=== PATIENT | female | born 1960 | race Caucasian/White ===

== ENCOUNTER 2018-08-27 23:45 | Emergency (ER) | payer SELFPAY ==
[~2018-08-27] VITALS: Ht 172.7 cm; Wt 127.2 kg
[2018-08-27 23:49] VITALS: Ht 172.7 cm; Wt 127.2 kg
[2018-08-28 00:55] VITALS: BP 125/87
== END 2018-08-28 00:55 | disposition home or self-care (01) ==
LOC: ED 23:45
DX: K08.89 Other specified disorders of teeth and supporting structures (principal); Z90.49 Acquired absence of other specified parts of digestive tract
CPT/HCPCS: Q0163